=== PATIENT | female | born 1950 | race Caucasian/White ===

== ENCOUNTER 2016-09-24 13:58 | Outpatient (CLI) | payer OTHER, BC ==
[2016-09-24] MEDS ORDERED: fentaNYL 100 MCG/2 ML INJ ONE (14:21)
[2016-09-24] MEDS ORDERED: MIDAZOLAM 2 MG/2 ML VIAL ONE (14:21)
[2016-09-24] MEDS ORDERED: NALOXONE HCL 0.4 MG/ML INJ ONE (15:29)
[2016-09-24] MEDS ORDERED: FLUMAZENIL 0.5 MG/5 ML MDV IVP ONE (15:30)
--- NOTE | 2016-09-24 18:26 | MR ---
MRI Upper Extremity, Left Wrist HISTORY: Wrist pain. History of prior surgery at the radius. Informed Consent: Informed written and oral consent was obtained for moderate intravenous conscious sedation. Moderate intravenous conscious sedation was provided for this study. This was monitored by Radiology Nursing and supervised by the radiologist. A total of 4 mg Versed and 175 mcg of fentanyl was given during the procedure. Sedation time 1532 hours to 1648 hours. Please see nursing notes for details . TECHNIQUE: MRI was performed of the left wrist using a 1.5 Barbara MRI system. Sagittal, coronal, and axial imaging was obtained with standard imaging sequences. Additional sequences were also performe d to help diminish metal susceptibility artifact. FINDINGS: There is artifact from hardware from prior fixation of the distal radius, with a volar fix ation plate and screws. There is slight ulnar positive variance of 2.5 to 3 mm. Subcortical bone ma rrow edema and a cyst is seen at the lunate at the articulation with the distal ulna, with mild early degenerative changes seen at the distal radius, with subcortical cystic change and cartilage thinnin g at the articulation with the scaphoid. The scapholunate and lunatotriquetral ligaments are intact. There is mild attenuation centrally at t he radial attachment of the triangular fibrocartilage complex but no measurable full-thickness tear. There is also degenerative signal and partial tear at the ulnar-sided articular surface of the artic ular disk. There is mild abnormal signal intensity in the extensor carpi ulnaris tendon at the level of the ulna r styloid. The other visualized tendons are unremarkable. IMPRESSIONS 1. Mild ulnar positive variance. Bone marrow edema and subcortical cyst in the lunate with the criss culation of the distal ulna in a location that can be seen with ulnar impaction syndrome. Partial te ar centrally at the radial attachment of the triangular fibrocartilage complex and partial tear of th e articular disk. 2. Postsurgical changes of open reduction internal fixation of the distal radius. Mild early degen erative change at the radioscaphoid articulation. 3. Mild tendinopathy extensor carpi ulnaris tendon.
== END 2016-09-24 17:40 | disposition home or self-care (01) ==
LOC: FIMAGING 13:58
PROVIDERS: ATTEND Orthopaedic Surgery Hand Surgery
DX: M25.532 Pain in left wrist (principal); M89.8X3 Other specified disorders of bone, forearm; Z98.890 Other specified postprocedural states
CPT/HCPCS: 73221; J2250; J2310; J3010

== ENCOUNTER → 2016-10-17 | Outpatient (CLI) | payer OTHER, BC ==
--- NOTE | 2016-10-17 11:16 | CPEKG ---
Heart Rate: 48 RR Interval: 1250 P-R Interval: 164 QRSD Interval: 90 QT Interval: 428 QTC Interval: 383 P [place]: 70 QRS [place]: 80 T Wave [place]: 63 EKG Severity - OTHERWISE NORMAL ECG - EKG Impression: SINUS BRADYCARDIA Electronically Signed By: Jose Roberto Brown 17-Oct-2016 11:42:55
== END ==
LOC: FCP 11:03
PROVIDERS: ATTEND Orthopaedic Surgery Hand Surgery
DX: Z01.810 Encounter for preprocedural cardiovascular examination (principal)

== ENCOUNTER → 2017-02-12 | Outpatient (CLI) | payer OTHER, BC | LOC: FIMAGING 11:13 | PROVIDERS: ATTEND Physician Assistant Surgical | DX: M51.36 Other intervertebral disc degeneration, lumbar region (principal); M54.42 Lumbago with sciatica, left side ==

== ENCOUNTER 2017-02-13 11:40 | Outpatient (CLI) | payer OTHER, BC ==
[2017-02-13] MEDS ORDERED: fentaNYL 100 MCG/2 ML INJ ONE (13:28)
[2017-02-13] MEDS ORDERED: NALOXONE HCL 0.4 MG/ML INJ ONE (13:28)
[2017-02-13] MEDS ORDERED: FLUMAZENIL 0.5 MG/5 ML MDV IVP ONE (13:28)
[2017-02-13] MEDS ORDERED: MIDAZOLAM 2 MG/2 ML VIAL ONE (13:29)
== END 2017-02-13 14:55 | disposition home or self-care (01) ==
LOC: FIMAGING 11:40
PROVIDERS: ATTEND Physician Assistant Surgical
DX: M54.42 Lumbago with sciatica, left side (principal); M51.36 Other intervertebral disc degeneration, lumbar region; M51.26 Other intervertebral disc displacement, lumbar region; I10 Essential (primary) hypertension; E78.5 Hyperlipidemia, unspecified; Z90.5 Acquired absence of kidney
CPT/HCPCS: 72148; 99152; J2250; J3010; J2310

== ENCOUNTER 2017-06-13 05:40 | Observation (INO) | payer OTHER, BC ==
[2017-05-21 14:37] LABS: % IMMATURE GRANULYOCYTES 0.3 % (0.0-1.1); ABSOLUTE IMMATURE GRANULOCYTES 0.02 10^3/uL (0.00-0.10); ADD DIFF? NO; ADD MORPH? NO; ADD SCAN? NO; ATYPICAL LYMPHOCYTE FLAG 0 (0-99); FRAGMENT RBC FLAG 0 (0-99); HEMATOCRIT 38.9 % (38.0-47.0); HEMOGLOBIN 13.1 g/dL (12.6-16.3); LEFT SHIFT FLG 0 (0-99); LIPEMIA HEMOLYSIS FLAG 80 (0-99); MEAN CELL HEMOGLOBIN 32.3 pg (27.9-34.1); MEAN CELL HEMOGLOBIN CONCENTR. 33.7 g/dL (32.4-36.7); MEAN PLATELET VOLUME 10.2 fL (8.7-11.7); PLATELET CLUMPS FLAG 0 (0-99); PLATELET COUNT 266 10^3/uL (150-400); RED BLOOD CELL COUNT 4.05 10^6/uL (4.18-5.33); RED CELL DISTRIBUTION WIDTH 12.6 % (11.5-15.2)
[2017-05-21 14:45] LABS: INR 0.95 (0.83-1.16); PROTIME(PATIENT) 12.6 SEC (12.0-15.0)
[2017-05-21 14:46] LABS: APTT 25.8 SEC (23.0-38.0)
[2017-05-21 14:58] LABS: ALANINE AMINOTRANSFERASE 46 IU/L (9-52); ALBUMIN 4.5 g/dL (3.5-5.0); ALKALINE PHOSPHATASE 86 IU/L (38-126); ANION GAP 13 mEq/L (8-16); ASPARTATE AMINOTRANSFERASE 26 IU/L (14-46); BILIRUBIN,TOTAL 0.5 mg/dL (0.1-1.4); CALCIUM 9.6 mg/dL (8.5-10.4); CARBON DIOXIDE 22 mEq/l (22-31); CHLORIDE 98 mEq/L (97-110); CHOLESTEROL 186 mg/dL (140-220); CHOLESTEROL/HDL RATIO 3.26 RATIO (1.00-4.44); CREATININE 1.2 mg/dL (0.6-1.0); GLOMERULAR FILTRATION RATE 45; GLUCOSE 88 mg/dL (70-100); HIGH DENSITY LIPOPROTEIN 57 mg/dL (40-85); LDL/HDL RATIO 1.47 RATIO (1.00-3.22); LOW DENSITY LIPOPROTEIN 84 mg/dL (80-100); NON-HIGH DENSITY LIPOPROTEIN 129 mg/dL (90-129); POTASSIUM 4.3 mEq/L (3.5-5.2); SODIUM 133 mEq/L (134-144); TOTAL PROTEIN 7.2 g/dL (6.3-8.2); TRIGLYCERIDE 225 mg/dL (35-135); VERY LOW DENSITY LIPOPROTEINS 45 mg/dL (8-25)
[2017-06-13] MEDS ORDERED: ACETAMINOPHEN 500 MG TAB PO ONE (06:06)
[2017-06-13] MEDS ORDERED: ceFAZolin 2 GM/DEXTROSE 100 ML IV ONE (06:06)
[2017-06-13] MEDS ORDERED: GABAPENTIN 300 MG CAP PO ONE (06:06)
[2017-06-13] MEDS ORDERED: LR 1,000 ML IV ONE (06:18)
[2017-06-13] MEDS ORDERED: LIDOCAINE 1% 2 ML INJ ID PRN (06:18)
[2017-06-13] MEDS ORDERED: BACITRACIN ZINC 14.2 GM OINTTUBE TP ONE (06:39)
[2017-06-13] MEDS ORDERED: CHLORHEXIDINE GLUC HIBICLENS 118 ML BTL TP ONE (06:39)
[2017-06-13] MEDS ORDERED: HYDROCODONE/APAP 5/325 TAB PO PRN (06:40)
[2017-06-13] MEDS ORDERED: fentaNYL 100 MCG/2 ML INJ IVP PRN (06:40)
[2017-06-13] MEDS ORDERED: ONDANSETRON 4 MG/2 ML VIAL IVP PRN ×2 (06:40→10:31)
[2017-06-13] MEDS ORDERED: HYDROmorphONE/DILAUDID 1 MG/ML INJ IVP PRN ×2 (06:40→10:31)
[2017-06-13] MEDS ORDERED: BUPIVACAINE 0.25% 30 ML SDV ONE (06:40)
[2017-06-13] MEDS ORDERED: ALBUTEROL 3 ML DEYVIAL IH PRN (06:40)
[2017-06-13] MEDS ORDERED: THROMBIN (BOVINE) 20,000 UNIT VIAL TP ONE (06:40)
[2017-06-13] MEDS ORDERED: BACITRACIN 50,000 UNITS/10 ML SYR IRR ONE (06:40)
[2017-06-13] MEDS ORDERED: NALOXONE HCL 0.4 MG/ML INJ IVP PRN (06:40)
--- NOTE | 2017-06-13 06:43 | PDANEPAE ---
ANE History of Present Illness Lumbar ANE Past Medical History - Cardiovascular History Hx Hypertension: Yes Hx Arrhythmias: No Hx Chest Pain: No Hx Coronary Artery / Peripheral Vascular Disease: No Hx CHF / Valvular Disease: No Hx Palpitations: No - Pulmonary History Hx COPD: No Hx Asthma/Reactive Airway Disease: No Hx Recent Upper Respiratory Infection: No Hx Oxygen in Use at Home: No Hx Sleep Apnea: No Sleep Apnea Screening Result - Last Documented: Negative - Neurologic History Hx Cerebrovascular Accident: No Hx Seizures: No Hx Dementia: No - Endocrine History Hx Diabetes: No - Renal History Hx Renal Disorders: Yes Renal History Comment: Right nephrectomy - Liver History Hx Hepatic Disorders: No - Neurological & Psychiatric Hx Hx Neurological and Psychiatric Disorders: Yes Neurological / Psychiatric History Comment: Anxious before procedures - Cancer History Hx Cancer: No - Congenital Disorder History Hx Congenital Disorders: No - GI History Hx Gastrointestinal Disorders: Yes Gastrointestinal History Comment: ACID REFLUX - Other Health History Other Health History: AIRWAY ALERT - Chronic Pain History Chronic Pain: Yes (back pain & leg pain with walking long distances and increased activity) - Surgical History Prior Surgeries: L WRIST HW REMOVAL. T&A. Hysterectomy. Left wrist/arm fracture with plate x2. Kidney reomved R. Cervical fusion. Right wrist carpal tunnel release. left foot surgery-2014 ANE Review of Systems Review of Systems: - Exercise capacity METS (RN): 4 METS ANE Patient History - Allergies Allergies/Adverse Reactions: latex Allergy (Intermediate, Verified 02/11/17 10:06) Other-Enter Comments Sulfa (Sulfonamide Antibiotics) Allergy (Mild, Verified 02/11/17 10:07) joint pain NSAIDS (Non-Steroidal Anti-Inflamma Allergy (Unknown, Verified 02/11/17 10:06) AVOIDS RT 1 KIDNEY - Home Medications Home Medications: Atorvastatin Calcium [Lipitor 40 mg (*)] 40 mg PO DAILY 09/17/16 [Last Taken 08/18 05:00] Losartan Potassium [Cozaar] 100 mg PO DAILY 09/17/16 [Last Taken 06/12/17 08:30] Metoprolol Tartrate [Lopressor 25 mg (*)] 25 mg PO DAILY 09/17/16 [Last Taken 05:00] amLODIPine BESYLATE [Norvasc 5 mg (*)] 5 mg PO DAILY 09/17/16 [Last Taken 05:00] Ranitidine HCl [Zantac 75] 75 mg PO BIDAC 09/18/16 [Last Taken 06/13/17 05:00] - Smoking Hx Smoking Status: Former smoker - Family Anes Hx Family Hx Anesthesia Complications: None ANE Labs/Vital Signs - Labs Result Diagrams: 05/21/17 14:27 05/21/17 14:27 - Vital Signs Height: 149.86 cm Weight: 74.616 kg ANE Physical Exam - Airway Neck exam: decreased ROM Mallampati Score: Class 3 Mouth exam: normal dental/mouth exam - Pulmonary Pulmonary: no respiratory distress - Cardiovascular Cardiovascular: systolic murmur - ASA Status ASA Status: III ANE Anesthesia Plan Anesthesia Plan: general endotracheal anesthesia (Awake Intubation with prior history of Difficult Airway)
--- NOTE | 2017-06-13 06:51 | PDHPUP ---
History & Physical Update H&P update statement: This history and physical update is based on an assessment of the patient which was completed after admission or registration (within 24 hours), but prior to the surgery/procedure. H&P update: H&P reviewed & patient examined, no change in patient's condition since H&P completed (Consents signed and site marked for left sided L4/5/S1 foraminotomies and L4/5 extraforaminal discectomy.)
[2017-06-13] MEDS ORDERED: LIDOCAINE HCL 4% TOPICAL SOLN 50ML ONE (06:58)
[2017-06-13] MEDS ORDERED: PROPOFOL/EMULSION 500 MG/50 ML BOTTLE IV ONE ×3 (07:00→08:41)
[2017-06-13] MEDS ORDERED: REMIFENTANIL HCL 1 MG VIAL ONE ×3 (07:00)
[2017-06-13] MEDS ORDERED: MIDAZOLAM 2 MG/2 ML VIAL ONE ×2 (07:01)
[2017-06-13] MEDS ORDERED: epHEDrine SULFATE 10 MG/ML SYR ONE ×3 (08:08→09:54)
[2017-06-13] MEDS ORDERED: RANITIDINE 50 MG/2 ML VIAL ONE (08:10)
[2017-06-13] MEDS ORDERED: ONDANSETRON 4 MG/2 ML VIAL ONE (08:11)
[2017-06-13] MEDS ORDERED: DEXAMETHASONE 4 MG/ML VIAL ONE (08:11)
[2017-06-13] MEDS ORDERED: METOCLOPRAMIDE 10 MG/2 ML VIAL ONE (08:11)
[2017-06-13] MEDS ORDERED: HYDROmorphONE/DILAUDID 2 MG/ML INJ ONE (08:39)
[2017-06-13] MEDS ORDERED: GENTAMICIN SULFATE 80 MG/2 ML VIAL ONE (09:06)
[2017-06-13] MEDS ORDERED: methylPREDNISolone SOD SUCC 125 MG/2 ML VIAL ONE (09:22)
[2017-06-13] MEDS ORDERED: DEPO METHYLPREDNISOLONE 40 MG/ML SDV ONE (09:23)
[2017-06-13] MEDS ORDERED: METHOCARBAMOL 750 MG TAB PO PRN (10:31)
[2017-06-13] MEDS ORDERED: LACTULOSE 20 GM/30 ML UDCUP PO PRN (10:31)
[2017-06-13] MEDS ORDERED: BISACODYL 10 MG SUPP PR PRN (10:31)
[2017-06-13] MEDS ORDERED: traMADol 50 MG TAB PO PRN (10:31)
[2017-06-13] MEDS ORDERED: POLYETHYLENE GLYCOL 3350 17 GM PKT PO PRN (10:31)
[2017-06-13] MEDS ORDERED: PROMETHAZINE HCL 25 MG/ML INJ IVP PRN (10:31)
[2017-06-13] MEDS ORDERED: MAGNESIUM HYDROXIDE 30 ML UDCUP PO PRN (10:31)
[2017-06-13] MEDS ORDERED: diphenhydrAMINE 25 MG CAP PO PRN (10:31)
[2017-06-13] MEDS ORDERED: ONDANSETRON DISINTEGRATING 4 MG TAB PO PRN (10:31)
--- NOTE | 2017-06-13 10:36 | POSTOPPROG ---
Post Op Note Date of Operation: 06/13/17 Surgeon: Dacia Spangler Animal Pathology Teacher: Brie Spangler PA-C Anesthesiologist: Mary Anesthesia: GET(General Endotracheal) Pre-op Diagnosis: lumbar radiculopathy, foraminal stenosis Post-op Diagnosis: same Indication: leg pain Procedure: left L4/5/S1 foraminotomy with extraforaminal discectomy Findings: Please see dictation Inf/Abcess present in the surg proc area at time of surgery?: No Depth: Organ Space EBL: 50-100 Complications: none Specimen(s): none PA Addendum - Addendum .: S: Pt in PACU, denies pain O: Sleepy but awakens easily NAD VSS MAEx4 Motor 5/5 BUE/BLE +LT Incision dressed cdi A: 66 yo F S/p left L4/5/S1 foraminotomy with extraforaminal discectomy P: Admit to obs Check BMP in am - only has one kidney Pain management PT/OT TEDs, SCDs, lovenox POD#1 D/w Dr Hernández Call NS with any questions
--- NOTE | 2017-06-13 10:39 | POSTANESTH ---
Post Anesthetic Evaluation Cardiovascular Status: Normal, Stable Respiratory Status: Normal, Stable Level of Consciousness/Mental Status: Can Participate in Eval, Mildly Sleepy, Arousable Pain Control: Adequate, Prn Tx Ordered Nausea/Vomiting Control: Adequate, Prn Tx Ordered Complications Possibly Related to Anesthesia: None Noted
[2017-06-13] MEDS ORDERED: NS W/ 20 KCl/L 1,000 ML IV SCH (10:45)
--- NOTE | 2017-06-13 11:11 | GOP ---
[f rep st] OPERATIVE REPORT DATE OF OPERATION: 06/13/2017 SURGEON: Katelynn Stanley MD NEUROSURGEON: Katelynn Stanley MD. COMMUNITY INTEGRATION SPECIALIST: Cheo Hernández MD PREOPERATIVE DIAGNOSIS: Far lateral left L4-5 disk herniation; left lumbosacral radiculopathy. POSTOPERATIVE DIAGNOSIS: Far lateral left L4-5 disk herniation; left lumbosacral radiculopathy. PROCEDURE PERFORMED: Left L4-5 extraforaminal microdiskectomy, decompression of the exiting L4 nerve root, microscope. FINDINGS: ESTIMATED BLOOD LOSS: 25 cc. INDICATIONS: The patient is a 66-year-old patient of my partner, Dr. Hernández, who was scheduled to un dergo lumbar laminectomy due to some lateral recess stenosis at L4-5, L5-S1, but she also had a far l ateral disc herniation on the left at L4-5 with compression of the left L4 nerve root in the neural f oramen. A left far-lateral disc approach at L4-5 was suggested. The risk of nerve injury, and jose eduardo nued symptoms have been discussed between her and my partner, Dr. Hernández. Dr. Hernández requested that I participated in the left L4-5 extraforaminal decompression while he was later going to proceed with a laminectomy through a separate incision at L4-5, 5-1. DESCRIPTION OF PROCEDURE: The patient was taken to the operating room, placed in supine position. G eneral anesthesia was begun. She was flipped prone onto the Derrick frame. Care was taken to pad all points of contact. She was sterilely prepped and draped in the usual fashion. Localizing x-rays we re taken. We made a 2.5 cm incision about 3 cm off the midline above the L4-5 disk space. The subcu taneous tissue was dissected using Bovie cautery down to the fascia. We then used a muscle-splitting technique down to the transverse process of L4 and L5 on the left-hand side. The self-retaining ret ractor was placed. A localizing x-ray was taken. We exposed the left L4 transverse process and the pars interarticularis of L4. We removed the ligamentous attachment at the pars and then, just deep t o this, was perineural fat and, deep to this, was the exiting L4 nerve root. It was easily identifie d. We mobilized the L4 nerve root and decompressed it along its path out to the tip of the transvers e process of L4 and L5. We then had fully delineated the rostral aspect of the nerve root. We coagu lated some of the epidural veins at the caudal aspect of the nerve root, mobilized the nerve root ros trally and then incised the L4-5 disk and performed a microdiskectomy. There was compression of the root. We decompressed the root nicely. There was no large free fragment that was delivered. We did a subannular decompression at L4-5; shot an x-ray confirming our position. We also performed an extr aforaminal decompression at the L4-5 level. We irrigated the discs with antibiotic saline solution a nd placed a little Depo-Medrol and Marcaine on the exiting L4 root. The incision was later closed wi th interrupted Vicryl sutures in multiple layers. Dr. Stanley performed the entire extraforaminal dominic campbell at L4-[address] Hernández. Dr. Hernández intended to perform a laminectomy at L4-5, 5-1 thro ugh a separate incision. Please see Dr. Hernández's report for the details of that separate procedure. COMPLICATIONS: None. /[id number]/MODL
--- NOTE | 2017-06-13 11:41 | GOP ---
[f rep st] OPERATIVE REPORT DATE OF OPERATION: 06/13/2017 SURGEON: Cheo Hernández MD SHEET IRONWORKER: Anselmo Stanley MD. SECOND COLLAR TRIMMER: Dacia Spangler. COMPLICATIONS: None. ANESTHESIA: General. PREOPERATIVE DIAGNOSIS: 1. Left-sided L4-L5 and L5-S1 lateral recess and foraminal stenosis. 2. Extraforaminal disk herniation, L4-5. 3. Treatment refractory to nonoperative intervention. 4. Left lower extremity radiculopathy. POSTOPERATIVE DIAGNOSIS: 1. Left-sided L4-L5, L5-S1 lateral recess and foraminal stenosis. 2. Extraforaminal disk herniation, L4-5. 3. Treatment refractory to nonoperative intervention. 4. Left lower extremity radiculopathy. PROCEDURE PERFORMED: 1. Left-sided L4-L5 hemilaminotomy with mesial facetectomy, lateral recess decompression and foraminotomy. 2. Left-sided L5-S1 hemilaminotomy with mesial facetectomy, lateral recess decompression and foraminotomy. 3. Use of intraoperative fluoroscopy, less than 1 hour physician time. 4. Use of neuromonitoring. 5. Use of operative microscope. FINDINGS: per imaging SPECIMENS: None. ESTIMATED BLOOD LOSS: 50 mL. INDICATIONS: The patient is a 66-year-old who unfortunately suffers from left lower extremity radiculopathy. She had evidence of an extraforaminal disk herniation L4-5 with lateral recess and foraminal stenosis, L4-5 and L5-S1 on the left side. After failing nonoperative interventions, we decided to proceed forth with surgery as described above. DESCRIPTION OF PROCEDURE: The patient was brought to the operating theater and underwent general endotracheal anesthesia without complications. She had Venodynes, EFRAIN hose and the appropriate lines placed by Anesthesia. She was flipped prone onto the Derrick frame, and all bony processes inspected and padded. The lower lumbar region was prepped and draped in usual sterile surgical fashion. A time-out was completed per protocol. The patient received antibiotics within [address] Anselmo Stanley will then dictate in a separate operative report the lateral approach to the L4-L5 extra foraminal disk space. After Dr. Stanley completed the extraforaminal L4-5 diskectomy, we used 2 needles to pick out entry point to the midline L4-L5 and L5-S1 levels for the foraminotomies. This was marked in the midline. The incision was then infiltrated with Marcaine with epinephrine. The incision was taken down with the scalpel blade, and using the monopolar taken down the midline through the lumbodorsal fascia to the left side of the L4-L5 and L5-S1 levels. Deep retractors were placed to maintain our exposure. We confirmed our level using lateral fluoroscopy. The microscope was brought into the field to assist with microscopic dissection and to maintain illumination and magnification. Using a combination of the bur tip on the drill bit and Kerrison punches, we completed a left-sided L4-L5 and L5- S1 hemilaminotomy with mesial facetectomies. We resected the ligamentum flavum at the L4-5 and L5-S1 levels again. We then moved up to L4-5 where we completed a lateral recess decompression as well as a foraminotomy. We completed this with a banana rongeu until we felt everything was decompressed on manual palpation. We then moved down to the L5-S1 level where we again completed a left-sided L5-S1 lateral recess decompression and foraminotomy using the banana Kerrison. We completed this until everything felt well decompressed on manual palpation. Once we felt that everything was well decompressed, we obtained hemostasis with the bipolar. All the wounds were irrigated copiously with bacitracin irrigation and closed in multiple layers using Vicryl sutures for the deep layers and Dermabond for the skin. The patient's wounds were dressed sterilely. She was flipped supine onto the transport cart where she was awakened, extubated and taken to the recovery room in stable condition. There were no complications and no noted changes on neuromonitoring throughout the procedure. /[id number]/MODL MTDD
[2017-06-13] MEDS: ceFAZolin 2 GM/DEXTROSE 100 ML IV SCH (14:37)
[2017-06-13] MEDS: ACETAMINOPHEN 500 MG TAB PO SCH ×2 (14:37→20:33)
[2017-06-13] MEDS: oxyCODONE IR 5 MG TAB PO PRN ×2 (14:42→20:34)
[2017-06-13] MEDS ORDERED: NON-FORMULARY NEW DRUG (Ranitidine Hcl [Zantac 75] 75 MG) PO SCH (17:30)
[2017-06-13] MEDS: FAMOTIDINE 20 MG TAB PO SCH ×2 (18:47→20:33)
[2017-06-13] MEDS: SENNOSIDES/DOCUSATE SODIUM TAB PO SCH (20:34)
[2017-06-14] MEDS: ceFAZolin 2 GM/DEXTROSE 100 ML IV SCH (00:35)
[2017-06-14] MEDS: ACETAMINOPHEN 500 MG TAB PO SCH ×2 (06:52→08:24)
[2017-06-14 06:53] LABS: ANION GAP 8 mEq/L (8-16); CALCIUM 9.4 mg/dL (8.5-10.4); CARBON DIOXIDE 22 mEq/l (22-31); CHLORIDE 100 mEq/L (97-110); CREATININE 1.1 mg/dL (0.6-1.0); GLOMERULAR FILTRATION RATE 50; GLUCOSE 109 mg/dL (70-100); POTASSIUM 4.3 mEq/L (3.5-5.2); SODIUM 130 mEq/L (134-144)
[2017-06-14] MEDS: FAMOTIDINE 20 MG TAB PO SCH ×2 (06:55→09:15)
[2017-06-14 07:48] VITALS: RESP 16; TEMP 98.2
--- NOTE | 2017-06-14 08:26 | NEUSURGPN ---
Assessment/Plan: A: 66 yo F S/p left L4/5/S1 foraminotomy with extraforaminal discectomy POD#1 P: Admit to obs Check BMP - slightly low Na, creatinine 1.1 Pain management PT/OT TEDs, SCDs, lovenox POD#1 DC to home today D/w Dr Hernández Call NS with any questions Subjective: Pt resting in bed, denies significant pain. States she is doing well overall. Objective: AAOx3 NAD VSS MAEx4 Motor 5/5 BLE +LT Urinary Catheter in Place: No - Physician Discussed Patient with : Betty Neurosurgery Physical Exam - Vitals, I&O, Labs I and O 06/13/17 06/14/17 06/15/17 05:59 05:59 05:59 Intake Total 1750 Output Total 50 Balance 1700 Weight 74.616 kg Intake: Oral (ml) 100 IV Intake (ml) 750 IV Infused (ml) 900 NS W/ 20 KCl/L 1,000 ml @ 700 75 mls/hr IV CONT RIVKA Rx #:[id number] ceFAZolin 2 GM/DEXTROSE 200 100 ml @ 200 mls/hr IV Q8H RIVKA Rx#:[id number] Output: Estimated Blood Loss (ml) 50 Other: Intake Quantity Yes Sufficient Vital Signs Temp Pulse Resp BP Pulse Ox 36.8 C 66 16 131/68 H 97 06/14/17 07:46 06/14/17 07:46 06/14/17 07:46 06/14/17 07:46 06/14/17 07:46 Laboratory Results 05/21/17 14:27 06/14/17 05:35 ICD10 Worksheet Patient Problems: Problems Problem Status Onset Lumbar radicular pain Acute - ICD10 Problem Qualifiers (1) Lumbar radicular pain
[2017-06-14] MEDS: SENNOSIDES/DOCUSATE SODIUM TAB PO SCH (08:59)
[2017-06-14] MEDS ORDERED: ATORVASTATIN CALCIUM 40 MG TAB PO SCH (09:00)
[2017-06-14] MEDS ORDERED: NON-FORMULARY NEW DRUG (Losartan Potassium [Cozaar] 100 MG) PO SCH (09:00)
[2017-06-14] MEDS ORDERED: METOPROLOL TARTRATE 25 MG TAB PO SCH (09:00)
[2017-06-14] MEDS ORDERED: LOSARTAN POTASSIUM 50 MG TAB PO SCH (09:00)
[2017-06-14] MEDS ORDERED: ENOXAPARIN 40 MG/0.4 ML SYR SC SCH (09:00)
[2017-06-14] MEDS ORDERED: amLODIPine BESYLATE 5 MG TAB PO SCH (09:00)
[2017-06-14 12:05] VITALS: BP 114/66; PULSE 75; O2SAT 93
--- NOTE | 2017-06-14 15:54 | ASMTCMCOM ---
CM Note CM Note Notes: Therapies clear pt for home. Pt medically stable for d/c, she will have RN w [facility] for private pay. Date Signed: 06/14/2017 03:53 PM Electronically Signed By:JEREMY Donnelly
--- NOTE | 2017-06-14 15:54 | ASDISCHSUM ---
Discharge Information Plan Status:Home with No Needs Medically Cleared to Leave: Discharge Date:06/14/2017 03:00 PM CM D/C Disposition:Home, Routine, Self-Care ADT D/C Disposition:Home, Routine, Self-Care Projected Discharge Date:06/14/2017 03:00 PM Transportation at D/C: Discharge Delay Reason: Follow-Up Date:06/14/2017 03:00 PM Discharge Slot: Final Diagnosis: Placement Information Patient Contact Information Contact Name:ADINA Relationship: Address: Work Phone: City: [facility] Phone: State/Zip Code: Email: Financial Information Financial Class: Primary Plan Desc:MEDICARE OUTPATIENT Primary Plan Number:[id number] Secondary Plan Desc:[employer] [place] [employer] Secondary Plan Number:[id number] Assessment Information [facility] CM Progress Note CM Note CM Note Notes: Therapies clear pt for home. Pt medically stable for d/c, she will have RN w [facility] for private pay. Date Signed: 06/14/2017 03:53 PM Electronically Signed By:JEREMY Donnelly Intervention Information Intervention Type:*SHAGGY-Signed Date of Service:06/14/2017 10:55 AM Patient Type:Observation Staff Member:Bambi Lemos Hours: Discipline: Severity: Comment:
== END 2017-06-14 15:00 | disposition home or self-care (01) ==
LOC: F3N 05:40
PROVIDERS: ADMIT Neurological Surgery; ATTEND Neurological Surgery
PROC: 0SB20ZZ Excision of Lumbar Vertebral Disc, Open Approach (ICD-10-PCS; principal; 2017-06-13 07:15)
PROC: 00NY0ZZ Release Lumbar Spinal Cord, Open Approach (ICD-10-PCS; principal; 2017-06-13 07:15)
PROC: 4A10X4G Monitoring of Central Nervous Electrical Activity, Intraoperative, External Approach (ICD-10-PCS; principal; 2017-06-13 07:15)
PROC: 0SB40ZZ Excision of Lumbosacral Disc, Open Approach (ICD-10-PCS; principal; 2017-06-13 07:15)
PROC: 0SB20ZZ Excision of Lumbar Vertebral Disc, Open Approach (ICD-10-PCS; 2017-06-13 07:15)
PROC: 00NY0ZZ Release Lumbar Spinal Cord, Open Approach (ICD-10-PCS; 2017-06-13 07:15)
DX: M51.26 Other intervertebral disc displacement, lumbar region (principal); M48.061 Spinal stenosis, lumbar region without neurogenic claudication; M54.16 Radiculopathy, lumbar region; R73.03 Prediabetes; N28.9 Disorder of kidney and ureter, unspecified; I10 Essential (primary) hypertension; E78.00 Pure hypercholesterolemia, unspecified
CPT/HCPCS: 63030; 63035; 63056; 76001; 97161; 97165; G8978; G8979; G8980; G8987; G8988; G8989; J0171; J0690; J1030; J1100; J1170; J1650; J2250; J2405; J2704; J2765; J2780

== ENCOUNTER → 2017-07-08 | Outpatient (CLI) | payer OTHER, BC | LOC: FIMAGING 09:44 | PROVIDERS: ATTEND Internal Medicine | DX: Z12.31 Encounter for screening mammogram for malignant neoplasm of breast (principal) | CPT/HCPCS: G0202 ==

== ENCOUNTER 2017-09-03 23:13 | Emergency (ER) | payer OTHER, BC ==
[2017-09-03 23:23] VITALS: PULSE 75; RESP 18
[2017-09-03] MEDS ORDERED: ACETAMINOPHEN 325 MG TAB PO ONE (23:33)
--- NOTE | 2017-09-03 23:43 | EDPHY ---
H & P Smoking Status: Former smoker Time Seen by Provider: 09/03/17 23:25 HPI/ROS: CHIEF COMPLAINT: Sore throat, cough, fever HISTORY OF PRESENT ILLNESS: 66-year-old female presents to the emergency department by private vehicle complaining of sore throat, dry cough, and fever. Her symptoms initially began yesterday and then she saw her primary care provider earlier today and had a negative rapid influenza swab. At that time however she did not have a sore throat. She only had a cough and was feeling achy but no fever. Since this evening however she developed the sore throat and fever for the and is having pain especially with swallowing. She feels that the cough is better since she is taking prescribed cough medication. She denies feeling short of breath. No chest pain. No headache. No reported trauma. She did receive a flu shot. She has been around people who have not felt well. REVIEW OF SYSTEMS: Constitutional: Subjective fevers, chills Eyes: No double or blurry vision. ENT: sore throat. Respiratory: Cough. No shortness of breath Cardiac: No chest pain. Gastrointestinal: No abdominal pain, vomiting or diarrhea. Genitourinary: No dysuria. Musculoskeletal: No neck or back pain. Skin: No rashes. Neurological: No headache. (Kirstie Strickland) Past Medical/Surgical History: Hypertension, 1 kidney, tonsillectomy, hysterectomy, orthopedic surgeries (Kirstie Strickland) Social History: Single and lives in [place] (Kirstie Strickland) Physical Exam: General Appearance: Alert, no distress. 37.3, heart rate 75, respirations 18, blood pressure 141/80, 94% on room air. Nontoxic appearing. Eyes: Pupils equal and round. Extraocular motions are all intact. ENT: Mouth: Mucous membranes moist. Mild posterior pharyngeal injection noted. Mild swelling to the uvula. No muffled voice or trismus. Respiratory: No wheezing, rhonchi, or rales, lungs are clear to auscultation. Cardiovascular: Regular rate and rhythm. Gastrointestinal: Abdomen is soft and nontender, no masses, no rebound or guarding, bowel sounds normal. Neurological: Alert and oriented x 3, cranial nerves II through XII grossly intact Skin: Warm and dry, no rashes. Musculoskeletal: Nontender to palpate along the cervical, thoracic or lumbar spine. Neck is supple. Extremities: Full range of motion and no peripheral edema. Psychiatric: Patient is oriented X 3, there is no agitation. (Kirstie Strickland) Constitutional: Initial Vital Signs Temperature (C) 37.3 C 09/03/17 23:20 Heart Rate 75 09/03/17 23:20 Respiratory Rate 18 09/03/17 23:20 Blood Pressure 141/80 H 09/03/17 23:20 O2 Sat (%) 94 09/03/17 23:20 O2 Delivery Mode Room Air Allergies/Adverse Reactions: latex Allergy (Intermediate, Verified 02/11/17 10:06) Other-Enter Comments Sulfa (Sulfonamide Antibiotics) Allergy (Mild, Verified 02/11/17 10:07) joint pain NSAIDS (Non-Steroidal Anti-Inflamma Allergy (Unknown, Verified 02/11/17 10:06) AVOIDS RT 1 KIDNEY Home Medications: Medication Instructions Recorded Atorvastatin Calcium [Lipitor 40 40 mg PO DAILY 09/17/16 mg (*)] Losartan Potassium [Cozaar] 100 mg PO DAILY 09/17/16 Metoprolol Tartrate [Lopressor 25 25 mg PO DAILY 09/17/16 mg (*)] amLODIPine BESYLATE [Norvasc 5 mg 5 mg PO DAILY 09/17/16 (*)] Ranitidine HCl [Zantac 75] 75 mg PO BIDAC 09/18/16 Oseltamivir Phosphate [Tamiflu] 75 mg PO BID #10 cap 09/03/17 Medical Decision Making ED Course/Re-evaluation: 66-year-old female presents to the emergency department with fever, myalgias, dry cough, and sore throat. She had a rapid influenza swab done at her primary care provider's earlier today which was negative. The patient now has worsening sore throat and now has a fever of 100.1 in the emergency department. Rapid strep test is pending. I did discuss with the patient the possibility of read testing for influenza. I also explained to the patient that because she was over the age of 65, she has dry cough, myalgias, fever, sore throat and clinically appears to have the flu, I did offer treatment with influenza. The patient declined influenza testing and will take Tamiflu as prescribed. I think this is reasonable. We will check to make sure that she has not developed strep pharyngitis as well. Rapid strep screen negative. I do not see antibiotics are indicated. Patient was given Tamiflu and will be discharged home. (Kirstie Strickland) Differential Diagnosis: Including but not limited to influenza, strep pharyngitis, viral upper respiratory infection, bronchitis, pneumonia (Kirstie Strickland) Other Provider: PHYSICIAN DOCUMENTATION: The patient was evaluated and managed by the Physician Automation Specialist. My co- signature indicates that I have reviewed this chart and I agree with the findings and plan of care as documented. I am the secondary supervising physician. (Shalini Quinteros) - Data Points Laboratory Results: 09/03/17 09/03/17 Unknown 23:35 Group A Strep Screen NEGATIVE (NEGATIVE) Group A Strep DNA Pending Medications Given: Discontinued Medications Acetaminophen (Tylenol) 650 mg PO EDNOW ONE Stop: 09/03/17 23:34 Last Admin: 09/03/17 23:37 Dose: 650 mg Oseltamivir Phosphate (Tamiflu) 75 mg PO EDNOW ONE Stop: 09/03/17 23:47 Last Admin: 09/04/17 00:20 Dose: 75 mg Departure - Departure Disposition: Home, Routine, Self-Care Clinical Impression: Influenza Condition: Good Instructions: Influenza (ED) Additional Instructions: Tylenol 1000 mg every 6 hr as needed for fever and/or pain. Tamiflu 75 mg twice daily for 5 days. Return to the emergency department if he developed fever, difficulty swallowing , difficulty breathing, or if you feel worse in any way. Referrals: Yamil Perez MD [Primary Care Provider] - 1-2 days without fail Prescriptions: Oseltamivir Phosphate [Tamiflu] 75 mg PO BID #10 cap
[2017-09-03] MEDS ORDERED: OSELTAMIVIR PHOSPHATE 75 MG CAP PO ONE (23:46)
[2017-09-04 00:26] VITALS: BP 137/75; TEMP 99.9; O2SAT 93
== END 2017-09-04 00:37 | disposition home or self-care (01) ==
DX: J11.1 Influenza due to unidentified influenza virus with other respiratory manifestations (principal); I10 Essential (primary) hypertension; Z87.891 Personal history of nicotine dependence; Z91.040 Latex allergy status

== ENCOUNTER → 2017-12-24 | Outpatient (CLI) | payer OTHER, BC | LOC: FIMAGING 12:39 | PROVIDERS: ATTEND Internal Medicine | DX: Z13.820 Encounter for screening for osteoporosis (principal); M85.89 Other specified disorders of bone density and structure, multiple sites ==

== ENCOUNTER → 2018-07-09 | Outpatient (CLI) | payer OTHER, BC | LOC: FIMAGING 10:59 | PROVIDERS: ATTEND Internal Medicine | DX: Z12.31 Encounter for screening mammogram for malignant neoplasm of breast (principal) ==